=== PATIENT | female | born 1950 | race Caucasian/White ===

== ENCOUNTER 2017-01-12 13:54 | Inpatient (IN) | payer MEDICARE, OTHER ==
[~2017-01-12] VITALS: Ht 154.9 cm; Wt 68.5 kg
--- NOTE | 2017-01-12 14:14 | NUR ---
DR WILKERSON AT BEDSIDE FOR EVAL.
--- NOTE | 2017-01-12 14:15 | NUR ---
PT BIB FAMILY TO ER BED 10 C/O L SIDED CHEST PAIN THAT STARTED AT AROUND 1300. DESCRIBING IT PRESSURE. 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 GOWNED AND PLACED ON MONITOR. AWAITING MD NAVARRO.
[2017-01-12] MEDS ORDERED: NITROGLYCERIN PACKET 1 GM PACKET TD ONE (14:30)
--- NOTE | 2017-01-12 14:30 | NUR ---
UNDER GROUND MINER AT BEDSIDE FOR BLOOD DRAW.
[2017-01-12] MEDS ORDERED: NITROGLYCERIN PACKET 1 GM PACKET ONE (14:34)
--- NOTE | 2017-01-12 14:41 | NUR ---
RADIOLOGY AT BEDSIDE FOR CHEST XRAY.
[2017-01-12 14:43] LABS: BASOPHILS # (AUTO) 0.4 /CMM (0.0-0.2); BASOPHILS % (AUTO) 3.5 % (0.0-2.0); EOSINOPHILS # (AUTO) 0.1 /CMM (0.0-0.7); EOSINOPHILS % (AUTO) 0.8 % (0.0-6.0); HEMATOCRIT 43 % (33-45); HEMOGLOBIN 13.9 g/dL (11.5-14.8); LYMPHOCYTES # (AUTO) 3.4 /CMM (0.8-4.8); LYMPHOCYTES % (AUTO) 26.9 % (20.0-44.0); MEAN CORPUSCULAR HEMOGLOBIN 27 PG (26.0-33.0); MEAN CORPUSCULAR HGB CONC 32 g/dl (31.0-36.0); MEAN CORPUSCULAR VOLUME 85 fL (82-100); MONOCYTES # (AUTO) 0.6 /CMM (0.1-1.30); MONOCYTES % (AUTO) 4.9 % (2.0-12.0); NEUTROPHILS # (AUTO) 8.3 /CMM (1.8-8.9); NEUTROPHILS % (AUTO) 63.9 % (43.0-81.0); PLATELET COUNT (AUTO) 264 /CMM (150-450); RDW COEFFICIENT OF VARIATION 13.4 (11.5-15.0); RED BLOOD CELL COUNT(AUTO) 5.12 MIL/uL (4.0-5.2); WHITE BLOOD COUNT (AUTO) 12.8 K/uL (4.3-11.0)
[2017-01-12 14:55] LABS: CARBON DIOXIDE 25 mmol/L (21-32); CHLORIDE 105 mmol/L (98-107); CREATININE 0.9 mg/dL (0.6-1.3); GLUCOSE 81 mg/dL (74-106); POTASSIUM 4.6 mmol/L (3.5-5.1); SODIUM SERUM 140 mmol/L (136-145); UREA NITROGEN, BLOOD 21 mg/dL (7-18)
[2017-01-12 14:58] LABS: INR 1.02 (0.87-1.13); PROTHROMBIN TIME 10.6 SECS (9.5-12.7)
[2017-01-12 15:08] LABS: B-TYPE NATRIURETIC PEPTIDE 89 PG/ML (0-125)
[2017-01-12 15:19] LABS: TROPONIN I < 0.017 ng/mL (0.00-0.056)
[2017-01-12 15:21] LABS: D-DIMER 0.19 mg/L(FEU (0.17-0.50)
--- NOTE | 2017-01-12 16:29 | NUR ---
CALLED NURSING CLAIMS TECHNICIAN FOR TELE BED
--- NOTE | 2017-01-12 18:10 | NUR ---
REPORT GIVEN TO MARY ANNE. PT AWAITING TRANSFER TO FLOOR.
--- NOTE | 2017-01-12 18:32 | NUR ---
TELE/RN ADMITTING NOTES RECEIVED PATIENT FROM ER VIA [facility] WITH ADMITTING DIAGNOSIS OF CHEST PAIN. PATIENTS SYMPTOMS WAS RELIEVED WITH NITRO PATCH, TO ADMIT PATIENT FOR FURTHER WORK UP AND MONITORING. PAST MEDICAL HISTORY INCLUDES HYPERTENSION AND DM. PT ALERT AND ORIENTED X4, AMBULATORY. DENIES ANY CHEST PAIN OR DISCOMFORT AT THIS TIME. NO SOB NOTED, BREATHING EVEN AND UNLABORED ON ROOM AIR. VITAL SIGNS STABLE. PER TELE MONTIR PATIENT SINUS ABDIFATAH TO SINUS RHYTHM HR 62. IV H/L TO LEFT HAND G20. PATIENTS IS AT BEDSIDE. WILL ENDORSE CARE TO ASSISTIVE TECHNOLOGY TRAINER FOR GAGE.
[2017-01-12 18:51] VITALS: BP 122/71
--- NOTE | 2017-01-12 19:00 | NUR ---
RAPID EXTRACTOR OPERATOR NOTES ADMITTED THIS 66 Y.O. FEMALE FROM ER PER [facility],C/O CHEST PAIN FEW HOUR OVERLOCK HEMMER, ACCOMPANIED BY .A/O X4,AMBULATORY,DENIES CHEST PAIN UPON ARRIVAL ON THE FLOOR.SALINE LOCK LEFT HAND INTACT AND PATENT.NO SKIN ISSUES.WITH SCALP SKIN GRAFT 20 YRS AGO FROM SKIN CANCER.WITH KNOWN HISTORY OF NECK SURGERY 2 YRS AGO.VITAL SIGNS WITH IN NORMAL LIMITS.O2 SAT 98% ON ROOM AIR.CALL LIGHT IN REACH,NEEDS ANTICIPATED.
[2017-01-12 20:00] VITALS: BP 130/79
[2017-01-12] MEDS ORDERED: BACL10TA PO (20:11)
[2017-01-12] MEDS ORDERED: ATEN100T PO (20:11)
[2017-01-12] MEDS ORDERED: GABA600T2 PO (20:11)
[2017-01-12] MEDS ORDERED: AMLO10TA4 PO (20:11)
[2017-01-12] MEDS ORDERED: LISI40TA4 PO (20:11)
[2017-01-12] MEDS ORDERED: HYDR12.5 PO (20:11)
[2017-01-12] MEDS ORDERED: HYDR-3976 PO (20:11)
[2017-01-12] MEDS ORDERED: METF500T4 PO (20:11)
[2017-01-12] MEDS ORDERED: OMEP40CA37 PO (20:11)
[2017-01-12] MEDS ORDERED: ATOR40TA PO (20:11)
--- NOTE | 2017-01-12 20:30 | NUR ---
DANCE INSTRUCTOR NOTES SEEN AND EXAMINED BY DESHAUN PARRY,WITH ORDERS NOTED AND CARRIED OUT.
[2017-01-12] MEDS ORDERED: IV NS 0.9% 1,000 ML IV PRN (20:32)
[2017-01-12] MEDS ORDERED: MAG HYDROX/AL HYDROX/SIMETH 30 ML UDC PO PRN (21:00)
[2017-01-12] MEDS ORDERED: NITROGLYCERIN 0.4 MG/TAB BOTTLE SL PRN (21:00)
[2017-01-12] MEDS ORDERED: ONDANSETRON HCL/PF 4 MG/2 ML VIAL IVP PRN (21:00)
[2017-01-12] MEDS ORDERED: MAGNESIUM HYDROXIDE 30 ML UDC PO PRN (21:00)
[2017-01-12] MEDS ORDERED: ZOLPIDEM TARTRATE 5 MG TABLET PO PRN (21:00)
[2017-01-12] MEDS ORDERED: ACETAMINOPHEN 325 MG TABLET PO PRN (21:00)
--- NOTE | 2017-01-12 21:00 | NUR ---
MS RN NOTES STARTED ON LOVENOX 40MG SQ GIVEN ON RIGHT LOWER ABDOMEN
[2017-01-12] MEDS: AMLODIPINE BESYLATE 10 MG TABLET PO SCH (21:11)
[2017-01-12] MEDS: ENOXAPARIN SODIUM 40 MG/0.4 ML DISP.SYRIN SQ SCH (21:12)
[2017-01-12] MEDS: HYDROCODONE/APAP 5/325MG 1 EACH TABLET PO PRN (21:15)
--- NOTE | 2017-01-12 21:15 | NUR ---
WINDOWS SERVER SUPPORT TECHNICIAN NOTES PAIN MANAGEMENT C/O NECK PAIN 6/10 ON PAIN SCALE,MEDICATED WITH NORCO 5/325MG PO ORDERED.
[2017-01-12] MEDS ORDERED: IV SET PRIMARY PUMP SET 1 EA INFUS.SET MC ONE (21:19)
--- NOTE | 2017-01-12 21:26 | NUR ---
WATER MANAGER NOTES STARTED ON NS 1LITER AT 75ML/HR RATE VIA IV PUMP
[2017-01-13] VITALS (7 sets, daily range): BP systolic 100–153; BP diastolic 67–81
--- NOTE | 2017-01-13 01:00 | NUR ---
CASINO HOST NOTES SLEEPING,AROUSABLE TO VERBAL STIMULI,KEPT ARM
--- NOTE | 2017-01-13 06:15 | NUR ---
PAINT PROCESS ENGINEER NOTES FAILY RESTED AT [facility].IVF INFUSING,DENIES CHEST [id number].AMBULATE TO THE RESTROOM WITH STEADY GAIT.IN NO ACUTE DISTRESS.WILL ENDORSE TO DAY NURSE FOR GAGE.
[2017-01-13 06:44] LABS: BASOPHILS % (AUTO) 0.5 % (0.0-2.0); EOSINOPHILS # (AUTO) 0.1 /CMM (0.0-0.7); EOSINOPHILS % (AUTO) 0.9 % (0.0-6.0); HEMATOCRIT 41 % (33-45); HEMOGLOBIN 13.6 g/dL (11.5-14.8); LYMPHOCYTES # (AUTO) 3.1 /CMM (0.8-4.8); LYMPHOCYTES % (AUTO) 36.3 % (20.0-44.0); MEAN CORPUSCULAR HEMOGLOBIN 28 PG (26.0-33.0); MEAN CORPUSCULAR HGB CONC 33 g/dl (31.0-36.0); MEAN CORPUSCULAR VOLUME 85 fL (82-100); MONOCYTES # (AUTO) 0.4 /CMM (0.1-1.30); MONOCYTES % (AUTO) 4.9 % (2.0-12.0); NEUTROPHILS % (AUTO) 57.4 % (43.0-81.0); PLATELET COUNT (AUTO) 209 /CMM (150-450); RDW COEFFICIENT OF VARIATION 14.3 (11.5-15.0); RED BLOOD CELL COUNT(AUTO) 4.86 MIL/uL (4.0-5.2); WHITE BLOOD COUNT (AUTO) 8.6 K/uL (4.3-11.0)
[2017-01-13 06:49] LABS: CALCIUM, SERUM 9.1 mg/dL (8.5-10.1); CREATININE 0.7 mg/dL (0.6-1.3); MAGNESIUM 1.6 mg/dL (1.8-2.4); PHOSPHORUS 3.6 mg/dL (2.5-4.9); POTASSIUM 3.2 mmol/L (3.5-5.1)
[2017-01-13] MEDS ORDERED: PANTOPRAZOLE 40 MG TABLET.DR PO SCH (07:30)
--- NOTE | 2017-01-13 07:30 | NUR ---
ms rn received on bed, awake,alert,oriented x3,not in any form of distress, respirations even and unlabored,no sob noted, no complain of chaest pain at this time, will monitor patient's condition.
[2017-01-13] MEDS ORDERED: REGADENOSON 0.4 MG/5 ML DISP.SYRIN IVP ONE (08:30)
--- NOTE | 2017-01-13 08:55 | NUR ---
ms rn was seen by dr. ayo shepherd/ orders made and carried out.
[2017-01-13] MEDS: GABAPENTIN 400 MG CAPSULE PO SCH ×4 (09:00→16:27)
[2017-01-13] MEDS ORDERED: ENOXAPARIN SODIUM 40 MG/0.4 ML DISP.SYRIN SQ SCH (09:00)
[2017-01-13] MEDS ORDERED: HYDROCHLOROTHIAZIDE 25 MG TABLET PO SCH (09:00)
--- NOTE | 2017-01-13 10:30 | NUR ---
ms rn remain on npo for stress test by 12 noon.
--- NOTE | 2017-01-13 12:00 | NUR ---
ms rn went down for stress test.
[2017-01-13] MEDS: ATORVASTATIN 40 MG TABLET PO SCH (13:47)
[2017-01-13] MEDS: BACLOFEN (10 MG) 10 MG TABLET PO SCH ×2 (13:47→16:27)
[2017-01-13] MEDS: ATENOLOL 50 MG TABLET PO SCH (13:48)
[2017-01-13] MEDS: METFORMIN 500 MG TABLET PO SCH ×2 (13:52→16:27)
[2017-01-13] MEDS: PANTOPRAZOLE 40 MG TABLET.DR PO SCH (13:53)
[2017-01-13] MEDS: LISINOPRIL (20MG) 20 MG TABLET PO SCH (13:53)
[2017-01-13] MEDS: Magnesium 1GM/D5W 100ML PREMIX 100 ML IV SCH ×2 (13:54→16:26)
[2017-01-13] MEDS ORDERED: SECONDARY IV SET 1 EA INFUS.SET MC ONE (13:59)
[2017-01-13] MEDS: HYDROCODONE/APAP 5/325MG 1 EACH TABLET PO PRN ×2 (14:05→19:10)
--- NOTE | 2017-01-13 15:00 | NUR ---
ms rn came back from procedure,all needs attended.
[2017-01-13] MEDS ORDERED: IV SET PRIMARY PUMP SET 1 EA INFUS.SET MC ONE (16:07)
[2017-01-13] MEDS: POTASSIUM CHLORIDE 20 MEQ TAB.PRT.SR PO SCH ×3 (16:29→19:03)
--- NOTE | 2017-01-13 18:00 | NUR ---
ms rn on bed, dc plan in am.
--- NOTE | 2017-01-13 19:15 | NUR ---
MS RN NOTES RECEIVED PT IN BED, A/O X 4. VERBALLY RESPONSIVE. AT BEDSIDE. PT WITH NO DISTRESS, NO SOB NOTED. RESPIRATION IS EVEN AND UNLABORED. ABDOMEN IS SOFT AND NON DISTENDED. IV SITE ON LEFT HAND INTACT AND PATENT , NO S/S OF INFILTRATION NOTED. DENIES ANY PAIN OR DISCOMFORT AT THIS TIME. PT IS AMBULATORY. ALL NEEDS ATTENDED AND MET. KEPT COMFORTABLE. CALL LIGHT WITHIN REACH. WILL CONTINUE TO MONITOR.
[2017-01-13] MEDS: ENOXAPARIN SODIUM 40 MG/0.4 ML DISP.SYRIN SQ SCH (21:18)
[2017-01-13] MEDS: AMLODIPINE BESYLATE 10 MG TABLET PO SCH (21:22)
[2017-01-14 04:12] VITALS: BP 101/62
--- NOTE | 2017-01-14 06:33 | NUR ---
MS RN NOTES PT IN BED, RESTING COMFORTABLY. A/O X 4. VERBALLY RESPONSIVE. PT WITH NO DISTRESS, NO SOB NOTED. RESPIRATION IS EVEN AND UNLABORED. ABDOMEN IS SOFT AND NON DISTENDED. IV SITE ON LEFT HAND INTACT AND PATENT , NO S/S OF INFILTRATION NOTED. DENIES ANY PAIN OR DISCOMFORT AT THIS TIME. PT IS AMBULATORY. SAFETY PRECAUTIONS OBSERVED. ALL NEEDS ATTENDED AND MET. KEPT COMFORTABLE. CALL LIGHT WITHIN REACH. WILL ENDORSE TO NEXT SHIFT FOR GAGE.
[2017-01-14] MEDS: HYDROCODONE/APAP 5/325MG 1 EACH TABLET PO PRN (06:53)
[2017-01-14 07:25] LABS: BASOPHILS # (AUTO) 0.1 /CMM (0.0-0.2); BASOPHILS % (AUTO) 0.5 % (0.0-2.0); EOSINOPHILS # (AUTO) 0.1 /CMM (0.0-0.7); EOSINOPHILS % (AUTO) 0.8 % (0.0-6.0); HEMATOCRIT 44 % (33-45); HEMOGLOBIN 14.4 g/dL (11.5-14.8); LYMPHOCYTES # (AUTO) 3.9 /CMM (0.8-4.8); LYMPHOCYTES % (AUTO) 39.4 % (20.0-44.0); MEAN CORPUSCULAR HEMOGLOBIN 28 PG (26.0-33.0); MEAN CORPUSCULAR HGB CONC 33 g/dl (31.0-36.0); MEAN CORPUSCULAR VOLUME 85 fL (82-100); MONOCYTES # (AUTO) 0.6 /CMM (0.1-1.30); MONOCYTES % (AUTO) 6.4 % (2.0-12.0); NEUTROPHILS # (AUTO) 5.3 /CMM (1.8-8.9); NEUTROPHILS % (AUTO) 52.9 % (43.0-81.0); PLATELET COUNT (AUTO) 245 /CMM (150-450); RDW COEFFICIENT OF VARIATION 14.4 (11.5-15.0); RED BLOOD CELL COUNT(AUTO) 5.14 MIL/uL (4.0-5.2)
[2017-01-14 07:41] LABS: CALCIUM, SERUM 9.4 mg/dL (8.5-10.1); CREATININE 0.9 mg/dL (0.6-1.3); PHOSPHORUS 3.6 mg/dL (2.5-4.9); POTASSIUM 3.9 mmol/L (3.5-5.1)
--- NOTE | 2017-01-14 07:45 | NUR ---
RN NOTE RECEIVED PT, PT IS AWAKE, A&OX4. NO S/S OF DISTRESS, PAIN OR SOB NOTED. PT IS AMBULATORY. IV SITE LOCATED ON LEFT HAND, 20 G[address] ME[address]URES IN PLACE. CALL LIGHT WITHIN REACH. WILL CONTINUE TO MONITOR.
[2017-01-14 07:46] LABS: THYROID STIMULATING HORMONE 4.595 uIU/mL (0.358-3.74); URIC ACID 4.9 mg/dL (2.6-7.2)
[2017-01-14 08:00] VITALS: BP_SYST 118; BP_SYST 148; BP_DIAS 65; BP_DIAS 82
[2017-01-14] MEDS: GABAPENTIN 400 MG CAPSULE PO SCH (08:52)
[2017-01-14] MEDS: ATORVASTATIN 40 MG TABLET PO SCH (08:52)
[2017-01-14] MEDS: LISINOPRIL (20MG) 20 MG TABLET PO SCH (08:52)
[2017-01-14] MEDS: PANTOPRAZOLE 40 MG TABLET.DR PO SCH (08:52)
[2017-01-14] MEDS: METFORMIN 500 MG TABLET PO SCH (08:52)
[2017-01-14 08:53] VITALS: BP 148/82
[2017-01-14] MEDS: BACLOFEN (10 MG) 10 MG TABLET PO SCH (08:53)
[2017-01-14] MEDS: ATENOLOL 50 MG TABLET PO SCH (08:53)
[2017-01-14] MEDS ORDERED: ASPI-605 PO (09:44)
--- NOTE | 2017-01-14 11:00 | NUR ---
MS RN NOTE DISCHARGE NOTE DISCHARGE INSTRUCTIONS GIVEN TO PATIENT AND ABLE TO UNDERSTAND. DISCHARGE PAPERWORK SIGNED AND BELONGINGS LIST SIGNED. PT IS A&O X 4. VERBALLY RESPONSIVE. FLU VACCINE NOT GIVEN DUE TO OUT OF SEASON. PT REFUSED PNEUMONIA VACCINE. EXPLAINED RISK AND BENEFITS X 3 AND STILL REFUSED. ALY CAME TO BRANCH OPERATIONS SPECIALIST THE PATIENT. PT LEFT IN STABLE CONDITION ACCOMPANIED BY , NO C/O PAIN, DISCOMFORT, CHEST PAIN. NO SOB IN RA. SKIN IS INTACT. VITAL SIGNS CHECKED AND RECORDED. MD AND CHARGE NURSE AWARE.
== END 2017-01-14 11:00 | disposition home or self-care (01) | DRG 392 ==
LOC: ER 13:57 → TELE 17:05 → MED 01-13 10:16
PROVIDERS: ADMIT Nurse Practitioner Acute Care; ATTEND Nurse Practitioner Acute Care
DX: K21.9 Gastro-esophageal reflux disease without esophagitis (principal); E87.1 Hypo-osmolality and hyponatremia; D72.829 Elevated white blood cell count, unspecified; E11.9 Type 2 diabetes mellitus without complications; E66.9 Obesity, unspecified; E78.5 Hyperlipidemia, unspecified; G89.29 Other chronic pain; I10 Essential (primary) hypertension; K44.9 Diaphragmatic hernia without obstruction or gangrene; Z87.891 Personal history of nicotine dependence; Z98.1 Arthrodesis status; Z68.28 Body mass index [BMI] 28.0-28.9, adult; R79.89 Other specified abnormal findings of blood chemistry; T50.2X5A Adverse effect of carbonic-anhydrase inhibitors, benzothiadiazides and other diuretics, initial encounter; Y92.89 Other specified places as the place of occurrence of the external cause
CPT/HCPCS: 36415; 71010-TC; 80048-TC; 80061-TC; 83735-TC; 83880; 84100-TC; 84443-TC; 84484-TC; 84550-TC; 85025-TC; 85378-TC; 85730-TC; 87081-TC; A4606; A6403; A9502; J1650; J2785; J3475; J7030; Z7610